=== PATIENT | female | born 1980 | race Caucasian/White ===

== ENCOUNTER 2018-10-16 19:04 | Emergency (ER) | payer MEDICAID ==
[~2018-10-16] VITALS: Ht 182.8 cm; Wt 52.2 kg
--- NOTE | ~2018-10-16 | EKG ---
[place], [place] ELECTROCARDIOGRAM REPORT NAME: GHISLAINE DURANT UNIT #: [id number] ROOM: DOCTOR: EPIPHANY DRAFT REPORT BIRTHDATE: [birth year] [facility] Test Date: 2018-10-16 Test Time: 20:03:28 Pat Name: GHISLAINE DURANT Department: Room: Gender: F [employer] Registered Nurse: : 1980 Requested By: DEDRICK MANCINI Order Number: [id number] Reading MD: Siria Escobar MD Measurements Intervals [place] Rate: 103 P: 80 VA: 112 QRS: 73 QRSD: 104 T: 49 QT: 324 QTc: 424 Interpretive Statements Sinus tachycardia Left atrial enlargement Left ventricular hypertrophy Nonspecific T abnrm, anterolateral leads No previous ECG available for comparison Electronically Signed On 10-17-2018 10:32:09 PDT by Siria Escobar MD CM:EKGRPT:ELECTROCARDIOGRAM REPORT 02 DEDRICK JO DRAFT REPORT DEDRICK MANCINI DO
--- NOTE | ~2018-10-16 | EKG ---
[place], [place] ELECTROCARDIOGRAM REPORT NAME: GHISLAINE DURANT UNIT #: [id number] ROOM: DOCTOR: [facility] DRAFT REPORT BIRTHDATE: [birth year] [facility] Test Date: 2018-10-16 Test Time: 20:03:28 Pat Name: GHISLAINE DURANT Department: Patient ID: [id number] Room: Gender: F Revit Drafter: : 1980 Requested By: DDERICK MANCINI Order Number: [id number] Reading MD: Measurements Intervals [place] Rate: 103 P: 80 NC: 112 QRS: 73 QRSD: 104 T: 49 QT: 324 QTc: 424 Interpretive Statements Sinus tachycardia Left atrial enlargement Left ventricular hypertrophy Nonspecific T abnrm, anterolateral leads Compared to ECG 09/11/2018 23:13:22 Left ventricular hypertrophy now present Sinus rhythm no longer present CM:EKGRPT:ELECTROCARDIOGRAM REPORT 02 1710 DEDRICK JO DRAFT REPORT DEDRICK MANCINI DO
[2018-10-16 19:41] LABS: BASO % 0.3 % (0.0-1.0); EOS % 0.3 % (1.0-4.0); HEMATOCRIT 37.6 % (37.0-47.0); HEMOGLOBIN 12.6 g/dl (12.0-16.0); LYMPH % 13.7 % (27.0-41.0); MEAN CELL VOLUME 93.8 fl (81.0-99.0); MEAN CORPUSCULAR HGB 31.4 pg (27.0-31.0); MEAN CORPUSCULAR HGB CONC 33.5 g/dl (33.0-37.0); MEAN PLATELET VOLUME 9.6 fl (9.6-12.3); MONO # 0.8 10*3/uL (0.1-1.0); MONO % 5.3 % (3.0-9.0); NEUT # 11.8 10*3/uL (2.3-7.9); NEUT % 80.1 % (47.0-73.0); PLATELET COUNT AUTOMATED 222 10*3/uL (130-400); RED BLOOD COUNT 4.01 10*6/uL (4.10-5.10); RED CELL DISTRI WIDTH 13.3 % (0-14.5); WHITE BLOOD COUNT 14.7 10*3/uL (4.8-10.8)
[2018-10-16 19:56] LABS: ACETAMINOPHEN (TYLENOL) < 5.0 ug/ml (10-30); ALBUMIN 3.6 gm/dl (3.1-4.5); ALKALINE PHOSPHATASE 87 U/L (45-117); BUN 5 mg/dl (7-24); CHLORIDE 113 mmol/L (98-107); CREATININE 0.96 mg/dL (0.55-1.02); POTASSIUM 3.2 mmol/L (3.5-5.1); SGOT/AST 21 IU/L (3-35); SGPT/ALT 26 U/L (12-78); SODIUM 145 mmol/L (136-145); TOTAL PROTEIN 7.1 gm/dL (6.4-8.2)
[2018-10-16 20:01] LABS: BILIRUBIN NEGATIVE (NEGATIVE); BLOOD TRACE-LYSED (NEGATIVE); CLARITY CLEAR (CLEAR); COLOR YELLOW (YELLOW); GLUCOSE NEGATIVE (NEGATIVE); KETONE NEGATIVE (NEGATIVE); LEUKO ESTERASE 1+ (NEGATIVE); NITRITE NEGATIVE (NEGATIVE); UROBILINOGEN 0.2 E.U./dl (0.2-1.0)
[2018-10-16 20:04] LABS: THYROID STIM HORMONE (HS) 0.468 uIU/ml (0.358-4.75)
[2018-10-16 20:09] LABS: BACTERIA 1+; EPITHELIAL CELLS 20-25
[2018-10-16 20:10] LABS: URINE AMPHETAMINES < 1000 (1000ng/ml); URINE BARBITURATES < 200 (200ng/ml); URINE BENZODIAZEPINES < 200 (200ng/ml); URINE CANNABINOIDS (THC) < 50 (50ng/ml); URINE COCAINE < 300 (300ng/ml); URINE METHADONE < 300 (300ng/ml); URINE OPIATES < 300 (300ng/ml); URINE PHENCYCLIDINE < 25 (25ng/ml)
[2018-10-17] MEDS ORDERED: LIDEX 0.05% CRE15 GM T (08:28)
[2018-10-17] MEDS ORDERED: PREDNISONE20 M1 PO (08:28)
== END 2018-10-17 09:41 | disposition home or self-care (01) ==
LOC: ED 19:04
PROVIDERS: Emergency Medicine
DX: F43.21 Adjustment disorder with depressed mood (principal); E03.9 Hypothyroidism, unspecified; F10.10 Alcohol abuse, uncomplicated; Y90.9 Presence of alcohol in blood, level not specified

== ENCOUNTER 2020-08-15 13:40 | Emergency (ER) | payer SELFPAY ==
[~2020-08-15] VITALS: Ht 182.8 cm; Wt 59.0 kg
[~2020-08-15 13:40] MED LIST: LIDEX 0.05% CRE15 GM T; PREDNISONE20 M1 PO
[2020-08-15 14:38] LABS: BASO # 0.1 10*3/uL (0.0-0.1); BASO % 0.9 % (0.0-1.0); EOS % 0.3 % (1.0-4.0); HEMATOCRIT 40.5 % (37.0-47.0); LYMPH # 0.9 10*3/uL (1.3-4.4); LYMPH % 14.2 % (27.0-41.0); MEAN CELL VOLUME 90.6 fl (81.0-99.0); MEAN CORPUSCULAR HGB 30.4 pg (27.0-31.0); MEAN CORPUSCULAR HGB CONC 33.6 g/dl (33.0-37.0); MEAN PLATELET VOLUME 9.5 fl (9.6-12.3); MONO # 0.5 10*3/uL (0.1-1.0); MONO % 8.1 % (3.0-9.0); NEUT # 4.8 10*3/uL (2.3-7.9); NEUT % 76.2 % (47.0-73.0); PLATELET COUNT AUTOMATED 227 10*3/uL (130-400); RED BLOOD COUNT 4.47 10*6/uL (4.10-5.10); RED CELL DISTRI WIDTH 13.3 % (0-14.5); WHITE BLOOD COUNT 6.3 10*3/uL (4.8-10.8)
[2020-08-15 14:49] LABS: ACT PARTIAL THROMBO TIME 25.4 SECONDS (20.0-32.1)
[2020-08-15 14:55] LABS: ALBUMIN 3.7 gm/dl (3.1-4.5); ALKALINE PHOSPHATASE 104 U/L (45-117); BUN 6 mg/dl (7-24); CHLORIDE 104 mmol/L (98-107); CREATININE 0.82 mg/dL (0.55-1.02); POTASSIUM 4.1 mmol/L (3.5-5.1); SGOT/AST 38 IU/L (3-35); SGPT/ALT 31 U/L (12-78); SODIUM 136 mmol/L (136-145); TOTAL PROTEIN 7.5 gm/dL (6.4-8.2)
[2020-08-15 14:57] LABS: TROPONIN I < 0.015 ng/ml (<0.045)
[2020-08-15] MEDS ORDERED: VISTARIL25 M2 PO (18:43)
== END 2020-08-15 18:13 | disposition home or self-care (01) ==
LOC: ED 13:40
PROVIDERS: Physician Assistant
DX: F41.9 Anxiety disorder, unspecified (principal); Z91.040 Latex allergy status

== ENCOUNTER 2022-07-02 19:04 | Emergency (ER) | payer BC ==
[~2022-07-02] VITALS: Ht 182.8 cm; Wt 54.4 kg
[~2022-07-02 19:04] MED LIST changes: +VISTARIL25 M2 PO
[2022-07-02] MEDS ORDERED: METOPROLOL SUCC25 M2 PO (19:21)
[2022-07-02] MEDS ORDERED: ESCITALOPRAM OX20 MG PO (19:22)
[2022-07-02] MEDS ORDERED: CYCLOBENZAPRINE10 MG PO (19:22)
[2022-07-02] MEDS ORDERED: VALIUM5 MG PO (19:42)
== END 2022-07-02 20:09 | disposition home or self-care (01) ==
LOC: ED 19:04
DX: F41.0 Panic disorder [episodic paroxysmal anxiety] (principal); F32.A Depression, unspecified; F41.9 Anxiety disorder, unspecified; Z91.040 Latex allergy status

== ENCOUNTER 2022-10-21 17:28 | Emergency (ER) | payer BC ==
[~2022-10-21] VITALS: Ht 182.8 cm; Wt 56.7 kg
[~2022-10-21 17:28] MED LIST changes: +CYCLOBENZAPRINE10 MG PO; +ESCITALOPRAM OX20 MG PO; +METOPROLOL SUCC25 M2 PO; +VALIUM5 MG PO
== END 2022-10-21 18:42 | disposition home or self-care (01) ==
LOC: ED 17:28
DX: F41.0 Panic disorder [episodic paroxysmal anxiety] (principal); F17.200 Nicotine dependence, unspecified, uncomplicated; Z91.041 Radiographic dye allergy status; Z91.040 Latex allergy status; Z79.899 Other long term (current) drug therapy

== ENCOUNTER 2023-09-06 18:06 | Emergency (ER) | payer BC | END 2023-09-06 20:00 | disposition left against medical advice (07) | LOC: ED 18:06 | DX: F41.9 Anxiety disorder, unspecified (principal); Z53.21 Procedure and treatment not carried out due to patient leaving prior to being seen by health care provider ==

== ENCOUNTER 2025-02-27 19:01 | Emergency (ER) | payer BC ==
[~2025-02-27] VITALS: Ht 182.8 cm; Wt 56.7 kg
[2025-02-27] MEDS ORDERED: LORazepam 1 MG TAB PO ONE (19:15)
[2025-02-27 19:26] LABS: BASO # 0.1 10*3/uL (0.0-0.1); BASO % 1.3 % (0.0-1.0); EOS # 0.0 10*3/uL (0.0-0.4); EOS % 0.6 % (1.0-4.0); MEAN CELL VOLUME 77.9 fl (81.0-99.0); MEAN CORPUSCULAR HGB 24.2 pg (27.0-31.0); MEAN PLATELET VOLUME 9.6 fl (9.6-12.3); MONO # 0.9 10*3/uL (0.1-1.0); MONO % 13.1 % (3.0-9.0); NEUT # 3.9 10*3/uL (2.3-7.9); NEUT % 56.8 % (47.0-73.0); NUCLEATED RED BLOOD CELL 0.0 % (0.0-0.0); NUCLEATED RED BLOOD CELL 0.0 10*3/uL (0.0-0.0); PLATELET COUNT AUTOMATED 379 10*3/uL (130-400); RED CELL DISTRI WIDTH 16.1 % (0-14.5)
[2025-02-27 20:16] LABS: BUN < 5 mg/dl (9-23)
== END 2025-02-27 22:24 | disposition home or self-care (01) ==
LOC: ED 19:01
PROVIDERS: Nurse Practitioner Family
DX: F41.1 Generalized anxiety disorder (principal); I10 Essential (primary) hypertension; F41.9 Anxiety disorder, unspecified; F32.A Depression, unspecified; Z91.041 Radiographic dye allergy status; Z91.040 Latex allergy status